=== PATIENT | female | born 1985 | race Caucasian/White ===

== ENCOUNTER → 2016-09-28 | Outpatient (CLI) | payer BC ==
[~2016-09-28] MED LIST: CHOLCAP5 PO; FLUT0.0529 NAE; HYDR0.5T PO; NAPR-1169 PO; PREG1CAP28 PO; [UNRECOGNIZED DRUG - CODE] TD
[2016-09-28 18:00] LABS: URINE APPEARANCE CLEAR (CLEAR); URINE BILIRUBIN NEG (NEG); URINE COLOR YELLOW; URINE EPITHELIAL CELL AUTO 20-30 /lpf (0-5); URINE NITRITE NEG (NEG); URINE PH 7.5 (4.5-7.5); URINE SPECIFIC GRAVITY 1.024 (1.000-1.030); UROBILINOGEN NEG (NEG)
[2016-09-28 18:06] LABS: MANUAL MICROSCOPIC REQUIRED? NO; REVIEW REQ? NO
[2016-09-28 18:21] LABS: C-REACTIVE PROTEIN < 0.29 mg/dl (0-0.29); TOTAL IRON BINDING CAPACITY 438 mcg/dl (250-450)
[2016-10-02 00:29] LABS: CYCLIC CITRULLINATED PEPT IGG <16 UNITS (<20); PARVOVIRUS IgG INDEX 3.8 (<0.9); PARVOVIRUS IgM INDEX 0.2 (<0.9)
== END | disposition home or self-care (01) ==
LOC: C.LAB1850 17:22
PROVIDERS: ATTEND Internal Medicine Rheumatology
DX: M25.50 Pain in unspecified joint (principal); R89.4 Abnormal immunological findings in specimens from other organs, systems and tissues; R76.8 Other specified abnormal immunological findings in serum; M79.7 Fibromyalgia

== ENCOUNTER → 2016-10-01 | Outpatient (CLI) | payer BC ==
--- NOTE | 2016-10-01 16:32 | DIAGNOSTIC IMAGING REPORT ---
WHOLE BODY BONE SCAN HISTORY: Pain M25.50 Arthralgia of multiple [id number] SS-B antibody positive RADIOTRACER: 24 mCi Tc-99m MDP STUDY/IMAGES: Planar anterior and posterior whole body imaging was performed 3 hours following the intravenous administration of radiotracer. COMPARISON: None. FINDINGS: Bilateral renal activity. Activity characteristics of the axial and appendicular skeleton are unremarkable. Subtle increase in activity lateral aspect right femoral shaft most likely secondary to physical activity. IMPRESSION: No acute process. Electronically signed by: José Manuel Moss M.D. 10/01/2016 4:31 PM Dictated Date/Time: 10/01/2016 4:29 PM
== END | disposition home or self-care (01) ==
LOC: C.NUCL 12:22
PROVIDERS: ATTEND Internal Medicine Rheumatology
DX: M25.50 Pain in unspecified joint (principal); R76.8 Other specified abnormal immunological findings in serum

== ENCOUNTER 2016-10-23 20:05 | Emergency (ER) | payer BC ==
[~2016-10-23] VITALS: Ht 154.9 cm; Wt 75.7 kg
[~2016-10-23 20:05] MED LIST changes: -CHOLCAP5 PO; -PREG1CAP28 PO
[2016-10-23 20:10] VITALS: TEMP 36.8; Ht 154.9 cm; Wt 75.7 kg
[2016-10-23] MEDS ORDERED: SODIUM CHLORIDE 0.9% 1000ML 1,000 ML IV ONE (20:23)
[2016-10-23] MEDS ORDERED: KETOROLAC TROMETHAMINE 30 MG/ML VIAL IV STA (20:23)
[2016-10-23] MEDS ORDERED: SODIUM CHLORIDE 0.9% 1000ML 1,000 ML IV STA (20:23)
--- NOTE | 2016-10-23 20:31 | EMERGENCY ROOM VISIT NOTE ---
History Report prepared by Juliette: Morena Blanc Under the Supervision of: Dr. Reginaldo Dowling M.D. First contact with patient: 20:13 Chief Complaint: ABDOMINAL PAIN Stated Complaint: STOMACH PAIN History of Present Illness The patient is a 30 year old female who presents to the Emergency Room with complaints of intermittent sharp, stabbing abdominal pain in the RUQ beginning this morning. The patient states that she woke up this morning with a ring of pain from her ribs and upper abdomen around her sides. She reports that her pain is worse with eating. She complains of a headache, bloating and pressure in the abdomen. The patient denies any trauma, injury, nausea, vomiting, bloody or black stools, unusual food, history of kidney stones, and urinary symptoms. She states that she has had this pain before but by the time she gets a doctors appointment the pain is gone. The patient notes that she is on her period right now and often gets a lot of pain with them but her pain today is different. She states that she has not ever had abdominal surgery and reports that this pain reminds her of the labor pain she had when she was . She rates her pain as a 3/10 resting and 8/10 when it is stabbing. Source of History: patient, spouse/significant other Onset: this morning Position: abdomen Quality: stabbing Timing: constant Modifying Factors (Worsening): eating Associated Symptoms: + headache, No nausea, No urinary symptoms, No vomiting Note: She complains of a bloating and pressure in the abdomen. The patient denies any trauma, injury, bloody or black stools, unusual food, history of kidney stones. Review of Systems See HPI for pertinent positives & negatives. A total of 10 systems reviewed and were otherwise negative. Past Medical & Surgical Medical Problems: (1) Cervical High Risk Human Papillomavirus (Hpv) Dna Test Pos (2) History of Luisa [place] (3) Sjogren's syndrome Old medical records were reviewed. Nurse's notes were reviewed and I agree with. Family History No pertinent family history stated. Social History Smoking Status: Never Smoker Drug Use: none Marital Status: Housing Status: lives with family Occupation Status: employed Current/Historical Medications Scheduled Cholecalciferol (Vitamin D3), 5,000 INTER.UNIT PO DAILY Pregabalin (Lyrica), 75 MG PO TID Allergies Coded Allergies: Tetracycline (Verified Allergy, Mild, 2/5/10) Clavulanic Acid (Verified Allergy, Unknown, 10/03/09) Milk Protein Extract (Verified Allergy, Unknown, Unknown, 10/23/16) Mometasone (Verified Allergy, Unknown, Unknown, 10/23/16) Penicillins (Verified Allergy, Unknown, 10/03/09) Sulfa Drugs (Verified Allergy, Unknown, 10/03/09) Sulfamethoxazole (Verified Allergy, Unknown, 10/03/09) Trimethoprim (Verified Allergy, Unknown, 10/03/09) Uncoded Allergies: BETALACTAMASEIN (Allergy, Unknown, 10/03/09) Physical Exam Vital Signs Date Time Temp Pulse Resp B/P Pulse Ox O2 Delivery O2 Flow Rate FiO2 10/23/16 22:59 96 18 105/78 96 10/23/16 21:41 66 18 117/77 96 Room Air 10/23/16 20:10 36.8 77 18 144/85 100 Room Air Physical Exam General: Non-ill appearing young female in no acute distress. HEENT: Normal cephalic atraumatic. Pupils are equal round and reactive to light. Sclerae anicteric. Extraocular movements are intact. Oropharynx is pink with moist mucous membranes. No swelling of the mouth lips or tongue. Neck: Supple with a midline trachea. No meningeal signs or stiffness, no JVD or bruits. No Stridor. Chest: Clear to auscultation bilaterally. No wheezes or rhonchi. No increased work of breathing. Heart: regular rate and rhythm. Abdomen: Soft, nondistended without rebound guarding or rigidity. Abdomen moderately tender over the RLQ, negative Davis's sign, no rebound. Extremities: No cyanosis clubbing or edema. No calf tenderness or assymetry Spine/Back. Non tender to palpation. No CVA tenderness Skin: Good turgor without rashes. Neurologic exam: Cranial nerves two through 12 are intact. Motor and sensation are intact and symmetrical throughout. Medical Decision & Procedures ER Provider Diagnostic Interpretation: CT results as stated below per my review and radiologist interpretation: CT ABD/PELVIS IV CONTRAST ONLY FINDINGS: Lower chest: The heart is normal in size and configuration, without pericardial effusion. The lung bases and pleural spaces are clear. Liver: The contrast-enhanced liver is normal in size, contour, and attenuation. There is no intrahepatic biliary ductal dilatation. The hepatic veins and portal veins are patent. Gallbladder: Unremarkable. Spleen: Normal in size and attenuation. Pancreas: Unremarkable. Adrenal glands: Unremarkable. Kidneys: There is symmetric renal cortical enhancement. The kidneys are normal in size without hydronephrosis. Bowel: There is mild fecal retention. There are no transition zones indicate bowel obstruction. There is no evidence of acute diverticulitis. The appendix appears normal. Peritoneum: There is no intraperitoneal free air or abdominal ascites. Vasculature: The abdominal aorta is normal in course and caliber. Adenopathy: None. Pelvic viscera: No pathologic adnexal masses are visualized. A tampon is visualized. Skeletal structures: No destructive osseous lesions are seen. IMPRESSION: 1. No evidence of bowel obstruction. No evidence of free air 2. Normal appendix 3. No evidence of acute diverticulitis 4. Mild fecal retention Electronically signed by: Kodak Azevedo M.D. 10/23/2016 10:12 PM Dictated Date/Time: 10/23/2016 10:09 PM Laboratory Results 10/23/16 20:39 Red Blood Count 4.86, Mean Corpuscular Volume 89.1, Mean Corpuscular Hemoglobin 30.7, Mean Corpuscular Hemoglobin Concent 34.4, Mean Platelet Volume 12.1, Neutrophils (%) (Auto) 59.4, Lymphocytes (%) (Auto) 31.0, Monocytes (%) (Auto) 5.7, Eosinophils (%) (Auto) 3.0, Basophils (%) (Auto) 0.7, Neutrophils # (Auto) 5.03, Lymphocytes # (Auto) 2.62, Monocytes # (Auto) 0.48, Eosinophils # (Auto) 0.25, Basophils # (Auto) 0.06 10/23/16 20:39 Test 10/23/16 20:25 10/23/16 20:39 Urine Color YELLOW Urine Appearance CLEAR (CLEAR) Urine pH 7.0 (4.5-7.5) Urine Specific [place] 1.003 (1.000-1.030) Urine Protein NEG (NEG) Urine Glucose (UA) NEG (NEG) Urine Ketones NEG (NEG) Urine Occult Blood NEG (NEG) Urine Nitrite NEG (NEG) Urine Bilirubin NEG (NEG) Urine Urobilinogen NEG (NEG) Urine Leukocyte Esterase NEG (NEG) Urine Test NEG (NEG) White Blood Count 8.46 K/uL (4.8-10.8) Red Blood Count 4.86 M/uL (4.2-5.4) Hemoglobin 14.9 g/dL (12.0-16.0) Hematocrit 43.3 % (37-47) Mean Corpuscular Volume 89.1 fL (80-100) Mean Corpuscular Hemoglobin 30.7 pg (25-34) Mean Corpuscular Hemoglobin Concent 34.4 g/dl (32-36) Platelet Count 272 K/uL (130-400) Mean Platelet Volume 12.1 fL (7.4-10.4) Neutrophils (%) (Auto) 59.4 % Lymphocytes (%) (Auto) 31.0 % Monocytes (%) (Auto) 5.7 % Eosinophils (%) (Auto) 3.0 % Basophils (%) (Auto) 0.7 % Neutrophils # (Auto) 5.03 K/uL (1.4-6.5) Lymphocytes # (Auto) 2.62 K/uL (1.2-3.4) Monocytes # (Auto) 0.48 K/uL (0.11-0.59) Eosinophils # (Auto) 0.25 K/uL (0-0.5) Basophils # (Auto) 0.06 K/uL (0-0.2) RDW Standard Deviation 42.1 fL (36.4-46.3) RDW Coefficient of Variation 12.9 % (11.5-14.5) Immature Granulocyte % (Auto) 0.2 % Immature Granulocyte # (Auto) 0.02 K/uL (0.00-0.02) Anion Gap 3.0 mmol/L (3-11) Est Creatinine Clear Calc Drug Dose 98.9 ml/min Estimated GFR () 120.3 Estimated GFR (Non- 103.8 BUN/Creatinine Ratio 12.8 (10-20) Calcium Level 9.3 mg/dl (8.5-10.1) Total Bilirubin 0.5 mg/dl (0.2-1) Direct Bilirubin 0.2 mg/dl (0-0.2) Aspartate Amino Transf (AST/SGOT) 15 U/L (15-37) Alanine Aminotransferase (ALT/SGPT) 24 U/L (12-78) Alkaline Phosphatase 51 U/L (45-117) Total Protein 8.0 gm/dl (6.4-8.2) Albumin 4.5 gm/dl (3.4-5.0) Lipase 225 U/L (73-393) Date/Time Source Procedure Growth Status 10/23/16 20:25 Urine , Clean Catch Urine Culture - Final MORE THAN THREE TYPES OF ORGANISMS ND... Complete Laboratory studies as stated above per my review. Medications Administered Medications (Trade) Dose Ordered Sig/Rema Route Start Time Stop Time Status Last Admin Dose Admin Sodium Chloride (Nss 1000ml) 1,000 ml @ 999 mls/hr Q1H1M STAT IV 10/23/16 20:23 10/23/16 21:23 DC 10/23/16 20:50 999 MLS/HR Ketorolac Tromethamine (Toradol Inj) 30 mg NOW STAT IV 10/23/16 20:23 10/23/16 20:25 DC 10/23/16 20:50 30 MG ED Course 2013: Past medical records reviewed. The patient was evaluated in room B5, and a complete history and physical examination were performed. 2022: Toradol Inj 30mg IV, Sodium Chloride 1000 ml @ 150 mls/hr IV, Sodium Chloride 1000 ml @ 999 mls/hr IV. 2206: I reevaluated the patient and she is resting comfortably. 2226: Upon reevaluation, the patient is hemodynamically stable. I discussed the results and treatment plan with the patient. She verbalized agreement of the treatment plan. The patient was discharged home. Medical Decision Differential diagnoses include appendicitis, ovarian pathology, gallbladder disease, colitis, kidney stone, , electrolyte or metabolic imbalance. This patient comes in as described above. She was placed in room B5. She is here for episode of abdominal pain. She's had this going on for a while got worse this evening .it seems the more tender on exam and her right lower quadrant. IV access established and she was hydrated IV normal saline and was given IV Toradol here at she had multiple blood testing obtained. She has stable vital signs and no white count and nothing to suggest infection or sepsis. She has normal electrolytes and normal kidney function. She has nothing to suggest acute liver or gallbladder or pancreas disease. She is not . She has nothing to suggest UTI or kidney stone. I did do a CAT scan as it was involving the right lower quadrant after explaining the risks and benefits to the patient and she has no evidence appendicitis or any other acute reason to explain her symptoms. She feels good and upon reassessment, her abdomen is benign. I recommended that she can continue to use ibuprofen for pain and return if: increasing pain, worsening of symptoms, fever or chills, any new problems concerns. She should follow-up with her regular doctor in 1-2 days for recheck. The patient was happy with the plan and she was discharged to home. Impression Primary Impression: RLQ abdominal pain Scribe Attestation The scribe's documentation has been prepared under my direction and personally reviewed by me in its entirety. I confirm that the note above accurately reflects all work, treatment, procedures, and medical decision making performed by me. Departure Information Dispostion Home / Self-Care Referrals Jesús Stapleton M.D. (PCP) Forms Call Back Authorization, HOME CARE DOCUMENTATION FORM, IMPORTANT VISIT INFORMATION Patient Instructions My [facility] Additional Instructions Rest. Drink plenty of fluids. Mild diet. Use ibuprofen 400 mg every 6 hours if needed. Take with food Return if: Increasing pain, worsening of symptoms, fever or chills, any new problems or concerns. Follow-up with your doctor this week for recheck
[2016-10-23] MEDS ORDERED: OPTIRAY 320 IV PRN (21:00)
[2016-10-23 21:06] LABS: URINE APPEARANCE CLEAR (CLEAR); URINE BILIRUBIN NEG (NEG); URINE COLOR YELLOW; URINE NITRITE NEG (NEG); URINE SPECIFIC GRAVITY 1.003 (1.000-1.030); UROBILINOGEN NEG (NEG)
[2016-10-23 21:07] LABS: BASO % 0.7 %; BASO ABS # 0.06 K/uL (0-0.2); COMPLETE YES; HEMATOCRIT 43.3 % (37-47); IG% 0.2 %; LYMPH ABS # 2.62 K/uL (1.2-3.4); MEAN CELL VOLUME 89.1 fL (80-100); MEAN CORPUSCULAR HEMOGLOBIN 30.7 pg (25-34); MEAN CORPUSCULAR HGB CONC 34.4 g/dl (32-36); MEAN PLATELET VOLUME 12.1 fL (7.4-10.4); MONO % 5.7 %; NEUT % 59.4 %; PLATELET COUNT 272 K/uL (130-400); RED BLOOD COUNT 4.86 M/uL (4.2-5.4); WHITE BLOOD COUNT 8.46 K/uL (4.8-10.8)
[2016-10-23 21:09] LABS: PREG INTERNAL NEGATIVE QC NEG CLEAR BACKGROUND; PREG INTERNAL POSITIVE QC POS CONTROL LINE
[2016-10-23] MEDS ORDERED: PREG1CAP28 PO (21:09)
[2016-10-23] MEDS ORDERED: CHOLCAP5 PO (21:09)
[2016-10-23 21:12] LABS: MANUAL MICROSCOPIC REQUIRED? NO; REVIEW REQ? NO
[2016-10-23 21:29] LABS: BUN/CREATININE RATIO 12.8 (10-20); CALCIUM 9.3 mg/dl (8.5-10.1); CREATININE 0.76 mg/dl (0.60-1.20); POTASSIUM 3.6 mmol/L (3.5-5.1)
--- NOTE | 2016-10-23 22:13 | DIAGNOSTIC IMAGING REPORT ---
CT ABD/PELVIS IV CONTRAST ONLY CLINICAL HISTORY: Right lower quadrant abdominal pain COMPARISON STUDY: 11/20/2012 TECHNIQUE: Following the IV administration of 92 mL of Optiray-320, CT scan of the abdomen and pelvis was performed from the lung bases to the proximal femurs. Images are reviewed in the axial, sagittal, and coronal planes. IV contrast was administered without complication. CT DOSE: 400.92 mGy.cm FINDINGS: Lower chest: The heart is normal in size and configuration, without pericardial effusion. The lung bases and pleural spaces are clear. Liver: The contrast-enhanced liver is normal in size, contour, and attenuation. There is no intrahepatic biliary ductal dilatation. The hepatic veins and portal veins are patent. Gallbladder: Unremarkable. Spleen: Normal in size and attenuation. Pancreas: Unremarkable. Adrenal glands: Unremarkable. Kidneys: There is symmetric renal cortical enhancement. The kidneys are normal in size without hydronephrosis. Bowel: There is mild fecal retention. There are no transition zones indicate bowel obstruction. There is no evidence of acute diverticulitis. The appendix appears normal. Peritoneum: There is no intraperitoneal free air or abdominal ascites. Vasculature: The abdominal aorta is normal in course and caliber. Adenopathy: None. Pelvic viscera: No pathologic adnexal masses are visualized. A tampon is visualized. Skeletal structures: No destructive osseous lesions are seen. IMPRESSION: 1. No evidence of bowel obstruction. No evidence of free air 2. Normal appendix 3. No evidence of acute diverticulitis 4. Mild fecal retention Electronically signed by: Kodak Azevedo M.D. 10/23/2016 10:12 PM Dictated Date/Time: 10/23/2016 10:09 PM
[2016-10-23 22:59] VITALS: BP 105/78; PULSE 96; O2SAT 96
== END 2016-10-23 22:59 | disposition home or self-care (01) ==
LOC: C.EDB 20:06
DX: R10.31 Right lower quadrant pain (principal); M35.00 Sjogren syndrome, unspecified; Z86.19 Personal history of other infectious and parasitic diseases

== ENCOUNTER → 2016-11-24 | Outpatient (CLI) | payer BC ==
[~2016-11-24] MED LIST changes: +CHOLCAP5 PO; -FLUT0.0529 NAE; -HYDR0.5T PO; -NAPR-1169 PO; +PREG1CAP28 PO; -[UNRECOGNIZED DRUG - CODE] TD
[2016-11-24 11:19] LABS: URINE APPEARANCE CLEAR (CLEAR); URINE BILIRUBIN NEG (NEG); URINE COLOR YELLOW; URINE NITRITE NEG (NEG); URINE PH 6.5 (4.5-7.5); URINE SPECIFIC GRAVITY 1.007 (1.000-1.030); UROBILINOGEN NEG (NEG)
[2016-11-24 11:21] LABS: MANUAL MICROSCOPIC REQUIRED? NO; REVIEW REQ? NO
== END | disposition home or self-care (01) ==
LOC: C.LAB1850 08:59
PROVIDERS: ATTEND Physician Assistant
DX: N39.3 Stress incontinence (female) (male) (principal); R30.0 Dysuria

== ENCOUNTER → 2017-02-07 | Outpatient (CLI) | payer BC | END | disposition home or self-care (01) | LOC: C.PAPS 14:34 | PROVIDERS: ATTEND Obstetrics & Gynecology | DX: Z01.419 Encounter for gynecological examination (general) (routine) without abnormal findings (principal) ==

== ENCOUNTER → 2017-08-16 | Outpatient (CLI) | payer BC | END | disposition home or self-care (01) | LOC: C.LAB 19:31 | PROVIDERS: ATTEND Family Medicine | DX: R06.02 Shortness of breath (principal) ==